=== PATIENT | female | born 1950 | race Caucasian/White ===

== ENCOUNTER 2021-03-02 23:50 | Emergency (ER) | payer MEDICARE, OTHER, SELFPAY ==
[2021-03-02 23:52] VITALS: BP 156/84; PULSE 81; RESP 15; TEMP 36.8; O2SAT 97; BMI 24.8
--- NOTE | 2021-03-03 00:27 | RAD_ITS ---
STUDY: X-RAY - RIGHT TIBIA AND FIBULA REASON FOR EXAM: Female, 70 years old. Injury/Pain TECHNIQUE: 2 view(s) of the tibia and fibula were obtained. COMPARISON: None. FINDINGS: There is demineralization of the tibia. There is demineralization of the fibula. There is no demonstrated acute fracture. The soft tissue structures are unremarkable. RAD/Tibia & Fibula 2 Views IMPRESSION: Diffuse osteopenia otherwise normal x-ray examination of the tibia and fibula. Electronically Signed: Elizabeth Ghosh MD at 1:22 EDT , Service support ,
--- NOTE | 2021-03-03 00:27 | RAD_ITS ---
STUDY: X-RAY - RIGHT FOOT CLINICAL: Female, 70 years old. Injury/Pain TECHNIQUE: 3 view(s) of the foot. COMPARISON: None. FINDINGS: Small plantar calcaneal spur and minimal enthesophyte at the Achilles tendon insertion site. Questionable diffuse osteopenia, otherwise normal talus, calcaneus, and tarsal bones. Normal visualized subtalar, talonavicular, calcaneocuboid, tarsal and tarsometatarsal articulations. Normal metatarsi. Normal metatarsophalangeal joint of the great toe. Normal tibial and fibular sesamoid bones. There is mild degenerative arthrosis of the interphalangeal joint of the great toe. Normal phalanges of the great toe. Normal second through fifth metatarsophalangeal joints. Mild narrowing of the interphalangeal joint suggestive of degenerative arthritis. The soft tissue structures are unremarkable. There is no demonstrated fracture. RAD/Foot min 3 Views IMPRESSION: Diffuse osteopenia along with mild degenerative disease. No acute fracture or subluxation. Electronically Signed: Elizabeth Ghosh MD at 1:19 EDT , Service support ,
--- NOTE | 2021-03-03 00:27 | RAD_ITS ---
STUDY: X-RAY - LEFT KNEE REASON FOR EXAM: Female, 70 years old. Injury/Pain TECHNIQUE: 4 view(s) of the knee. COMPARISON: None. FINDINGS: There is demineralization of the visualized distal femur. There is demineralization of the tibia and fibula. There is sclerosis was mild decrease in height of the lateral tibial plateau suggestive of a possible subtle fracture. There is subtle sclerosis within the lateral tibial metaphysis. Normal proximal tibiofibular articulation. Normal medial femorotibial compartment. Normal lateral femorotibial compartment. Normal patellofemoral articulation. There is moderate joint effusion. The soft tissue structures are unremarkable. RAD/Knee 4 or More Views IMPRESSION: Subtle fracture through the lateral tibial plateau. Due to linear sclerosis of the proximal left tibial metaphysis, differential diagnosis includes stress fracture. Clinical correlation recommended. If indicated, these findings may be more adequately characterize with CT or MRI of the left knee. Electronically Signed: Elizabeth Ghosh MD at 1:22 EDT , Service support ,
[2021-03-03] MEDS: fentaNYL 100 MCG/2 ML Ampul 50 MCG IM (00:35)
--- NOTE | 2021-03-03 01:23 | ED.VIS.FALL ---
HPI HPI - Fall History of Present Illness Chief Complaint: Fall Narrative Narrative: 70-year-old patient of Dr. Mahan in [place] who is in town visiting for 1 more day. Patient reports that she was coming down the steps in the dark with flip-flops on and missed a step. She fell and injured her left knee. States that she has severe pain when she attempts to bear weight. Mild pain at rest. She complains of pain to her right foot that is 5-10 severity. Denies any blow to the head or loss of consciousness. She is not on anticoagulants. No neck, back, shoulder, wrist, or hip pain. [facility] Medical History Hypertension Osteoarthritis Osteopenia Home Medications acetaminophen [Tylenol Extra Strength] 1,300 mg PO DAILY 03/03/21 [History Last Taken Unknown] calcium carbonate [Tums] 300 mg PO BID 03/03/21 [History Last Taken Unknown] cholecalciferol (vitamin D3) [Vitamin D3] 2,000 unit DAILY 03/03/21 [History Last Taken Unknown] losartan 12.5 mg PO DAILY 03/03/21 [History Last Taken Unknown] multivitamin 1 cap PO DAILY 03/03/21 [History Last Taken Unknown] oxycodone 5 mg PO Q6H PRN 5 Days #20 tab 03/03/21 [Rx Last Taken Unknown] sennosides [senna] 8.6 mg PO DAILY #7 cap 03/03/21 [Rx Last Taken Unknown] Allergy/AdvReac Type Severity Reaction Status Date / Time Sulfa (Sulfonamide Allergy Anaphylaxis Verified 03/02/21 23:52 Antibiotics) Social History Smoking Status: Never smoker ROS ROS ED Constitutional Constitutional ED: Denies chills, fever(s) or sweats Eyes Eyes: Denies change in vision ENT ENT ED: Denies sore throat Cardiovascular Cardiovascular: Denies chest pain Respiratory/Chest Respiratory/Chest: Denies cough, dyspnea or dyspnea on exertion Gastrointestinal Gastrointestinal: Denies abdominal pain, diarrhea, melena, nausea or vomiting Genitourinary Genitourinary ED: Denies dysuria or urinary frequency Musculoskeletal Musculoskeletal: Denies myalgias Integumentary Denies rash Neurologic Neurologic: Denies headache(s), paresthesias or weakness EXAM Physical Exam Const Vital Signs: 03/02/21 23:52 03/03/21 00:20 03/03/21 02:11 Temperature 98.3 F Temperature Source Temporal Pulse Rate 81 76 Respiratory Rate 15 17 Respiratory Effort Normal Blood Pressure 156/84 H 160/74 H Blood Pressure Mean 108 102 Pulse Ox 97 98 Oxygen Delivery Method Room Air Room Air Room Air Positive well nourished and well developed General Appearance ED: well developed HEENT normocephalic and atraumatic Eyes PERRL Neck full ROM, no lymphadenopathy, supple and no JVD Neck Narrative: No vertebral tenderness. Full ROM without difficulty. Cleared by NEXUS criteria. General: Negative for tenderness Chest Wall Chest: Negative for tenderness Resp normal respiratory effort and clear to auscultation bilaterally Effort and Inspection: Negative for respiratory distress Cardio regular rate, regular rhythm and no murmurs Rate: regular rate Rhythm: regular rhythm GI normal to inspection, nondistended, normoactive bowel sounds, soft to palpation and non-tender GI Narrative: No pain in RUQ or LUQ specifically. No peritoneal signs. Back/Spine Back/Spine Narrative: No vertebral tenderness. Full ROM without difficulty. Extremity full ROM Extremity Narrative: Mild tenderness palpation over the right forefoot. Moderate translocation of the lateral surface of her left knee. No pain or ligamentous instability with anterior/posterior drawer or medial/lateral stress. Negative Farida bilaterally. She does have a small joint effusion. She is neuro vas intact distal to this. General Extremety ED: Negative for edema or tenderness General Extremity: Negative for edema Neuro oriented x3, CN's II-XII intact bilaterally and no sensory deficits noted Sensorium / Orientation: awake and alert Motor Exam: strength 5/5 throughout Psych mental status grossly normal Skin no rashes or lesions noted MDM MDM Radiography Diagnostic Testing: Radiology Impression Foot X-Ray 03/03/21 00:27 IMPRESSION: Diffuse osteopenia along with mild degenerative disease. No acute fracture or subluxation. Electronically Signed: Elizabeth Ghosh MD at 1:19 EDT , Service support , Knee X-Ray 03/03/21 00:27 IMPRESSION: Subtle fracture through the lateral tibial plateau. Due to linear sclerosis of the proximal left tibial metaphysis, differential diagnosis includes stress fracture. Clinical correlation recommended. If indicated, these findings may be more adequately characterize with CT or MRI of the left knee. Electronically Signed: Elizabeth Ghosh MD at 1:22 EDT , Service support , Tibia/Fibula X-Ray 03/03/21 00:27 IMPRESSION: Diffuse osteopenia otherwise normal x-ray examination of the tibia and fibula. Electronically Signed: Elizabeth Ghosh MD at 1:22 EDT , Service support , Lower Extremity CT 03/03/21 02:06 IMPRESSION: Lateral tibial plateau fracture with minimal depression and mild impaction. Lipohemarthrosis. Electronically Signed: Elizabeth Ghosh MD at 3:19 EDT , Service support , Right foot x-ray 3 views read by myself shows no acute disease. Right tib-fib x-ray 2 views read by myself shows no acute disease. Left knee x-ray is read by radiology as a lateral tibial plateau fracture. I really do not appreciate this. Because of this a CT was ordered. Treatment and Re-Evaluation Comments:: Emergency department course: Patient was treated for dose of fentanyl IM. She was then given oxycodone p.o. She is resting comfortably. Treatment plan: Patient will be discharged with nonweightbearing status. She placed in a knee immobilizer and on crutches. Instructed to follow-up the orthopedic surgeon in [place] within a week for further evaluation and treatment. Return to the emergency department for any worsening symptoms. Disposition: To home in improved and stable condition. This note was generated with [employer] dictation software. It may contain incorrect words, spelling, and punctuation that were not noted in review of the chart prior to signing. Discharge Plan Triage Chief Complaint: Fall ED Provider: Pancho [place] Dx/Rx/DC Orders Clinical Impression: Fall, Closed fracture of lateral portion of left tibial plateau Instructions: ED Fracture, Knee Prescriptions: New oxycodone 5 mg tablet 5 mg PO Q6H PRN (Reason: pain) 5 Days Qty: 20 RF: 0 senna 8.6 mg capsule 8.6 mg PO DAILY Qty: 7 RF: 0 No Action acetaminophen [Tylenol Extra Strength] 500 mg Capsule 1,300 mg PO DAILY RF: 0 cholecalciferol (vitamin D3) [Vitamin D3] 50 mcg (2,000 unit) Capsule 2,000 unit DAILY RF: 0 multivitamin Capsule 1 cap PO DAILY RF: 0 calcium carbonate [Tums] 300 mg (750 mg) Tablet,Chewable 300 mg PO BID RF: 0 losartan 25 mg Tablet 12.5 mg PO DAILY RF: 0 Referrals: CITLALY MONZON [Other] Doctor,Surgeon, [STAFF PHYSICIAN] - 1 Week
[2021-03-03] MEDS: oxyCODONE 5 MG Tablet PO (01:29)
--- NOTE | 2021-03-03 02:06 | CT_ITS ---
STUDY: CT LEFT KNEE WITHOUT CONTRAST REASON FOR EXAM: Female, 70 years old. Lateral tibail plateau fracture on xray RADIATION DOSAGE (If Supplied By Facility): CTDIvol = ( 15.35 ) mGy, DLP = ( 453.54 ) mGycm TECHNIQUE: Transaxial CT imaging of the knee was performed. Coronal and sagittal images were reformatted. Individualized dose optimization techniques were used for this CT. COMPARISON: None. FINDINGS: Normal medial femoral condyle and medial tibial plateau. There is preservation of the articular joint space of the medial knee compartment. Normal lateral femoral condyle. Fracture of the lateral tibial plateau with minimal depression and mild impaction. There is preservation of the articular joint space of the lateral knee compartment. Normal proximal tibiofibular articulation. There is a lipohemarthrosis. The quadriceps tendon is grossly normal. The patellar tendon is grossly normal. Normal Hoffa''s fat pad. The soft tissues are unremarkable. CT/Extremity Lower without Contra IMPRESSION: Lateral tibial plateau fracture with minimal depression and mild impaction. Lipohemarthrosis. Electronically Signed: Elizabeth Ghosh MD at 3:19 EDT , Service support ,
[2021-03-03 02:11] VITALS: BP 160/74; PULSE 76; RESP 17; O2SAT 98
[2021-03-03 03:43] VITALS: BP 132/74; PULSE 74; RESP 16; O2SAT 98
== END 2021-03-03 04:09 | disposition home or self-care (01) ==
PROVIDERS: Emergency Provider Emergency Medicine
DX: S82.142A Displaced bicondylar fracture of left tibia, initial encounter for closed fracture (principal); W10.9XXA Fall (on) (from) unspecified stairs and steps, initial encounter; Y93.9 Activity, unspecified; Y92.89 Other specified places as the place of occurrence of the external cause; Y99.8 Other external cause status; I10 Essential (primary) hypertension; M85.80 Other specified disorders of bone density and structure, unspecified site; Z79.899 Other long term (current) drug therapy
CPT/HCPCS: 73564; 73590; 73630; 73700; 96372; 99284